=== PATIENT | female | born 1950 | race Caucasian/White ===

== ENCOUNTER → 2016-10-15 09:00 | Day surgery (SDC) | payer MEDICARE, BC ==
[~2016-10-15 09:00] MED LIST: Buffered Lidocaine 1% SYR 3ML* 3 ML/SYR SYRINGE INTRADERM ONE; Bupivacaine 0.25% EPI 200,000* 30 ML SDV ONE; Bupivacaine 0.25% SDV* 30 ML ONE; Lidocain 1% EPI 1:100,000 * 30 ML MDV ONE; Lidocaine 2% PF * 5 ML VIAL ONE; Metoprolol Succinate XL TAB* 50 MG ONE; Midazolam* 1 MG/ML 2 ML VIAL (2 MG) ONE; Propofol* 10 MG/ML 20 ML BTL IV PUSH ONE; ceFAZolin 2 GM PREMIX(*) 2 GM/50 ML BAG IVPB ONE; fentaNYL* 50 MCG/ML 2 ML VIAL (100 MCG VIAL) ONE
[2016-10-15 09:22] VITALS: BP 121/50
== END | disposition home or self-care (01) ==
LOC: OREAST 06:36
PROVIDERS: ATTEND Plastic Surgery
DX: C44.519 Basal cell carcinoma of skin of other part of trunk (principal); L72.0 Epidermal cyst; I10 Essential (primary) hypertension; E03.9 Hypothyroidism, unspecified; E11.9 Type 2 diabetes mellitus without complications; Z79.4 Long term (current) use of insulin; Z96.41 Presence of insulin pump (external) (internal)
CPT/HCPCS: 88304; 88305; A9270-GY; J0690; J2250; J2704; J3010

== ENCOUNTER 2018-03-14 18:26 | Emergency (ER) | payer MEDICARE, BC ==
[2018-03-14] MEDS ORDERED: Albuterol/Ipratropium NEB.SOL* Albuterol 2.5 MG/Ipratropium 0.5 MG 3 ML INH ONE (22:13)
[2018-03-14] MEDS ORDERED: Albuterol 2.5 MG/3 ML NEB.SOL* (0.083%) INH ONE (22:13)
--- NOTE | 2018-03-14 22:58 | ED ---
Complex/Multi-Sys Presentation - HPI Summary HPI Summary: Patient is a 67 y/o F w/ c/o congestion, a somewhat productive cough onsetting about a week ago. Fever, SOB, chest pain is denied. Hx of PNA is noted. Patient reports that she is concerned she is developing PNA again and wants to rule it out as she has a long vacation to [place] towards the end of the month. On triage , pain is denied, hot shower is noted to alleviate Sx, nothing is reported to aggravate. Patient began to take amoxicillin on her own yesterday in case it is PNA. Home medications and allergies are reviewed. - History Of Current Complaint Chief Complaint: EDGeneral Time Seen by Provider: 03/14/18 21:38 Hx Obtained From: Patient Onset/Duration: Lasting Weeks - a week ago, Still Present Timing: Constant Severity Currently: None Aggravating Factor(s): nothing Alleviating Factor(s): warm shower alleviates Associated Signs And Symptoms: Positive: Cough, Other - congestion. Negative: SOB, Chest Pain, Fever - Allergies/Home Medications Allergies/Adverse Reactions: Allergies Allergy/AdvReac Type Severity Reaction Status Date / Time Adhesive Tape Allergy Intermediate itchy and Verified 10/15/16 06:52 red bee venom protein (honey bee) Allergy Shortness Verified 03/14/18 21:41 of Breath rosuvastatin Allergy Muscle Ache Verified 03/14/18 19:25 PMH/Surg Hx/FS Hx/Imm Hx Endocrine/Hematology History: Reports: Hx Diabetes - type 1 - insulin pump, Hx Thyroid Disease Cardiovascular History: Reports: Hx Hypertension Respiratory History: Denies: Hx Asthma, Hx Chronic Obstructive Pulmonary Disease (COPD) Musculoskeletal History: Reports: 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 right shoulder rotator cuff repair 2004 - [facility]. cataract surgery with lens implant Hx Anesthesia Reactions: No - Immunization History Date of Tetanus Vaccine: utd Date of Influenza Vaccine: utd Infectious Disease History: No Infectious Disease History: Denies: Traveled Outside the [place] in Last 30 Days - Family History Known Family History: Negative: Blood Disorder - Social History Alcohol Use: Weekly Substance Use Type: Reports: None Smoking Status (MU): Light Every Day Tobacco Smoker Amount Used/How Often: smoked for 25-30 years 1/2 ppd Review of Systems Negative: Fever Negative: Chest Pain Positive: Cough, Other - congestion . Negative: Shortness Of Breath All Other Systems Reviewed And Are Negative: Yes Physical Exam - Summary Physical Exam Summary: VITAL SIGNS: Reviewed. GENERAL: Patient is a well-developed and nourished female who is lying comfortable in the stretcher. Patient is not in any acute respiratory distress. HEAD AND FACE: No signs of trauma. No ecchymosis, hematomas or skull depressions. No sinus tenderness. EYES: PERRLA, EOMI x 2, No injected conjunctiva, no nystagmus. EARS: Hearing grossly intact. Ear canals and tympanic membranes are within normal limits. MOUTH: Oropharynx within normal limits. NECK: Supple, trachea is midline, no adenopathy, no JVD, no carotid bruit, no c- spine tenderness, neck with full ROM. CHEST: Symmetric, no tenderness at palpation LUNGS: mild decreased breath sounds bilaterally. No wheezing or crackles. CVS: Regular rate and rhythm, S1 and S2 present, no murmurs or gallops appreciated. ABDOMEN: Soft, non-tender. No signs of distention. No rebound no guarding, and no masses palpated. Bowel sounds are normal. EXTREMITIES: FROM in all major joints, no edema, no cyanosis or clubbing. NEURO: Alert and oriented x 3. No acute neurological deficits. Speech is normal and follows commands. SKIN: Dry and warm Triage Information Reviewed: Yes Vital Signs On Initial Exam: Initial Vitals Temp Pulse Resp BP Pulse Ox 97.4 F 71 18 109/79 95 03/14/18 19:21 03/14/18 19:21 03/14/18 19:21 03/14/18 19:21 03/14/18 19:21 Vital Signs Reviewed: Yes Diagnostics - Vital Signs Vital Signs Temp Pulse Resp BP Pulse Ox 03/14/18 22:38 76 20 98 03/14/18 22:00 72 94 03/14/18 21:38 71 111/61 94 03/14/18 19:21 97.4 F 71 18 109/79 95 - Laboratory Lab Statement: Any lab studies that have been ordered have been reviewed, and results considered in the medical decision making process. - Radiology CXR Xray Interpretation: No Acute Changes Radiology Interpretation Completed By: ED Physician - CXR: no acute process, pending official report Re-Evaluation - Re-Evaluation First Eval Re-Evaluation Time: 22:55 Comment: Patient has BG of 46. She is a type 1 diabetic, which was not reported when provider first went into room. She will be given sandwich and soda. Second Eval Re-Evaluation Time: 23:30 Change: Improved Comment: Patient's BG is 205. She reports improvement in Sx after breathing treatment. CXR discussed with patient, she will be discharged to home. She is agreeable with this. Complex Multi-Symp Course/Dx Course Of Treatment: Patient is a 67 y/o F w/ c/o congestion, a somewhat productive cough onsetting about a week ago. Fever, SOB, chest pain is denied. Hx of PNA is noted. Patient reports that she is concerned she is developing PNA again and wants to rule it out as she has a long vacation to [place] towards the end of the month. On triage, pain is denied, hot shower is noted to alleviate Sx , nothing is reported to aggravate. Patient began to take amoxicillin on her own yesterday in case it is PNA. Physical exam showed mild decreased breath sounds bilaterally. CXR: no acute process.During ED course, patient received Levaquin 750 mg PO ONCE, Duoneb (albuterol 2.5 mg/ipratropium 0.5 mg) 1 neb INH ONCE, Ventolin 2.5 mg/3 ml Neb.Cherri 2.5 mg INH ONCE. 2255 Patients BG is 46, she is diabetic type 1. She will be given sandwich and soda. 2330 Patients BG is 205. She reports improvement in Sx after breathing treatment. CXR discussed with patient, she will be discharge to home and is agreeable with this. Dx of bronchitis. - Diagnoses Provider Diagnoses: Bronchitis Discharge - Sign-Out/Discharge Documenting (check all that apply): Patient Departure - discharge - Discharge Plan Condition: Stable Disposition: HOME Prescriptions: Albuterol HFA INHALER* [Ventolin HFA Inhaler*] 2 puff INH Q6H PRN #1 mdi PRN Reason: Sob/Wheezing Levofloxacin TAB* [Levaquin TAB*] 750 mg PO DAILY #7 tab Patient Education Materials: Acute Bronchitis (ED) Referrals: Alex PARKINSON,Francy Monsivais [Primary Care Provider] - 2 Days Additional Instructions: RETURN TO THE EMERGENCY DEPARTMENT FOR CHANGING OR WORSENING SYMPTOMS. FOLLOW UP WITH PRIMARY CARE PHYSICIAN IN 1-2 DAYS. - Attestation Statements Document Initiated by Scribe: Yes Documenting Scribe: Peter Samuels Provider For Whom Scribe is Documenting (Include Credential): Josué Llamas MD Scribe Attestation: IPeter , scribed for Josué Llamas MD on 03/15/18 at 0028.
[2018-03-14] MEDS ORDERED: Albuterol HFA INHALER* 8 gm MDI INH PRN (23:31)
[2018-03-14] MEDS ORDERED: Levofloxacin TAB* 750 MG PO ONE (23:31)
[2018-03-15 00:21] VITALS: BP 151/63
--- NOTE | 2018-03-15 07:52 | RAD ---
HISTORY: Cough COMPARISONS: August 03, 2011 VIEWS: 1: frontal AP view of the chest at 10:19 PM FINDINGS: LINES AND TUBES: None. CARDIOMEDIASTINAL SILHOUETTE: The cardiomediastinal silhouette is normal for portable technique. PLEURA: The costophrenic angles are sharp. No pleural abnormalities are noted. LUNG PARENCHYMA: There is hyperinflation. ABDOMEN: The upper abdomen is clear. There is no subphrenic gas. BONES AND SOFT TISSUES: No bone or soft tissue abnormalities are noted. IMPRESSION: HYPERINFLATION. NO ACTIVE CARDIOPULMONARY DISEASE. R0
== END 2018-03-15 00:35 | disposition home or self-care (01) ==
LOC: ED 18:26
DX: J40 Bronchitis, not specified as acute or chronic (principal); R05 Cough; F17.210 Nicotine dependence, cigarettes, uncomplicated; R09.81 Nasal congestion
CPT/HCPCS: 71045; 99283; A9270-GY

== ENCOUNTER 2019-07-15 11:54 | Emergency (ER) | payer MEDICARE, BC ==
--- OUTSIDE RECORDS SUMMARY | 2019-07-15 12:02 | XMS REPORT | Summary of Care ---
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 Reason for Visit Reason Comments Follow Up Diabetes Mellitus pt is using pump and checking 4 to 6x daily Encounter Details Date Type Department Care Team Description 06/26/2019 [facility] type 1, uncontrolled with complications (HCC) (Primary Dx); [address] Elisha English MD Hyperlipidemia, unspecified hyperlipidemia type; [address] Other osteoporosis, unspecified pathological fracture presence [address] [phone] [place] [address] [phone] Allergies Active Allergy Reactions Severity Noted Date Comments Bee Sting Swelling 08/13/2016 Rosuvastatin Calcium GI Reaction 05/05/2016 documented as of this encounter (statuses as of 06/27/2019) Medications Medication Sig Dispensed Refills Start Date End Date Status ramipril (ALTACE) 10 Take 10 mg by 0 Active MG Oral Cap mouth DAILY. Pravastatin Sodium 80 Take by mouth. 0 Active MG Oral Tab sertraline (ZOLOFT) Take 100 mg by 0 Active 100 MG Oral Tab mouth DAILY. aspirin (ECOTRIN) 81 Take 81 mg by 0 Active MG Oral Tab EC mouth DAILY. Ascorbic Acid (VITAMIN Take by mouth. 0 Active C) 1000 MG Oral Tab VITAMIN D, Take 2,000 IU by 0 Active ERGOCALCIFEROL, PO mouth. B Complex Vitamins (B Take by mouth. 0 Active COMPLEX PO) Insulin Infusion Pump 1 Each by Does not 30 Each 0 06/11/2016 Active Supplies (INSULIN PUMP apply route EVERY SYRINGE RESERVOIR) THREE DAYS. Does not apply Misc Insulin Infusion Pump 1 Each by Does not 30 Each 0 06/11/2016 Active Supplies (QUICK-SET apply route EVERY INFUSION 23" 6MM) Does THREE DAYS. not apply Misc Ibandronate Sodium 150 TAKE 1 TABLET BY 3 Tab 3 08/13/2017 Active MG Oral Tab MOUTH EVERY 30 DAYS NOVOLIN N 100 UNIT/ML INJECT 25 UNITS 20 vial 0 04/19/2018 Active Subcutaneous UNDER THE SKIN TWO Suspension TIMES DAILY BEFORE MEALS insulin aspart, RAPID Inject 60 Units 50 mL 3 09/27/2018 Active - Acting, (INSULIN beneath the skin ASPART) 100 UNIT/ML Continuous. Subcutaneous Solution insulin pump basal IC ISF Dx. E10.9 MDD-60UNITS Insulin Infusion Pump 1 Device by Does 1 Device 0 01/13/2019 Active (MINIMED 670G INSULIN not apply route PUMP) Does not apply Continuous. Device Continuous Blood Gluc 1 Each by Does not 12 Each 4 01/13/2019 Active Sensor (MINIMED apply route EVERY GUARDIAN SENSOR 3) 7 DAYS. Does not apply Misc CONTOUR NEXT TEST In 1 Each by In Vitro 550 Strip 4 01/13/2019 Active Vitro Strip route SIX TIMES DAILY. DXE10.65 Medtronic pump Levothyroxine Sodium Take 137 mcg by 60 Cap 2 01/25/2019 Active 137 MCG Oral Cap mouth DAILY. metoprolol (LOPRESSOR) Take 1 Tab by 60 Tab 3 01/25/2019 Active 50 MG Oral Tab mouth DAILY. levothyroxine TAKE 1 TABLET BY 60 Tab 2 05/12/2019 Active (SYNTHROID) 137 MCG MOUTH EVERY DAY Oral Tab documented as of this encounter (statuses as of 06/27/2019) Active Problems Problem Noted Date Uncontrolled type 1 diabetes mellitus without complication 08/06/2016 documented as of this encounter (statuses as of 06/27/2019) Social History Tobacco Use Types Packs/Day Years Used Date Former Smoker Smokeless Tobacco: Never Used Alcohol Use Drinks/Week oz/Week Comments Yes 1 Glasses of wine 1.0 Sex Assigned at Date Recorded Not on file Job Start Date Occupation Industry Not on file Not on file Not on file Travel History Travel Start Travel End No recent travel history available. documented as of this encounter Last Filed Vital Signs Vital Sign Reading Time Taken Comments Blood Pressure 120/60 06/26/2019 3:38 PM EST Pulse 86 06/26/2019 3:38 PM EST Temperature - - Respiratory Rate - - Oxygen Saturation 93% 06/26/2019 3:38 PM EST Inhaled Oxygen Concentration - - Weight 80.7 kg (178 lb) 06/26/2019 3:38 PM EST Height 165.1 cm (5' 5") 06/26/2019 3:38 PM EST Body Mass Index 29.62 06/26/2019 3:38 PM EST documented in this encounter Patient Instructions Patient InstructionsElisha Bright MD - 06/26/2019 3:00 PM EST DIABETES MELLITUS 1: Basal : 0:00 0.8 0.4 0.85 6: 1.3 18:00 1.25 I:C 1: 12 SF 1:55 over 100- 120 Thyroid Results for ARUNA SCALES ( ) as of 06/26/2019 15:52 Ref. Range 02/07/2019 08:16 Direct Ldl-Cholesterol Latest Ref Range: <100 MG/DL 80 T3 Total Shantel Latest Ref Range: 80 - 200 ng/dl 103 TSH Latest Ref Range: 0.47 - 4.68 uIu/ml 0.73 Free T4 Latest Ref Range: 0.8 - 2.2 NG/DL 1.3 eye : nonproliferative retinopathy appt with Sally as soon as posible documented in this encounter Progress Notes Elisha Bright MD - 06/26/2019 3:00 PM EST NAME: Aruna Scales : 1950 DATE: 06/26/2019 SUBJECTIVE: Aruna Scales is a 68-y.o. female seen for evaluation of DIABETES MELLITUS 1 The history was obtained from the pt who was judged to be reliable. Microvascular : + Background retinopathy follows with Dr Whitney on regular basis , + neuropathy , - nephropathy we are waiting for the reports from [facility] Macro: no CVA, no MD, No PVD Cardiovascular risk factors: dyslipidemia, diabetes mellitus, hypertension, post-menopausal. No admissions for DK or low BG Basal rate pump 670 G basal rate midnight 0.8 units/h 4 AM 0.85 units/h 6 AM 1.3 units/h 6 PM 1.25 units/h Insulin to carb ratio 1 unit per 12 grams of carbohydrates Sensitivity factor I unit per 55 points of blood sugar was target 100-1 20 Active insulin 4 hours. She checks her blood sugar before each meal and at bedtime 4- 6 x times a day. She was able to pare her glucose sensor with her pump but we do not have enoughdata yet. The pump was downloaded and she is still in manual mode 100% Average blood sugar on the pump 130 20 mg/dL next average blood sugar via fingerstick 146 42 Total daily dose of insulin 35 units bolus amount 7 units equals 20% basal rate 28 units equals 80% set change every 13 days next meals per day 0.9 she is not putting all the meals to the pump Carbs entered per day 64 31. HBa1c was 9.6 is 8.1 Primary hypothyroidism Lt4 to 137 mcg a day Osteoporosis on ibandronate 150 mg Past Medical History: Diagnosis Date Basal cell carcinoma Chronic lymphocytic thyroiditis Diabetes mellitus (HCC) dx age 25 HTN (hypertension) Hyperlipidemia Hypothyroid Osteoporosis Current Outpatient Medications Medication Sig Ascorbic Acid (VITAMIN C) 1000 MG Oral Tab Take by mouth. aspirin (ECOTRIN) 81 MG Oral Tab EC Take 81 mg by mouth DAILY. B Complex Vitamins (B COMPLEX PO) Take by mouth. Continuous Blood Gluc Sensor ([employer] GUARDIAN SENSOR 3) Does not apply Misc 1 Each by Does not apply route EVERY 7 DAYS. CONTOUR NEXT TEST In Vitro Strip 1 Each by In Vitro route SIX TIMES DAILY. DXE10.65 Medtronicpump Ibandronate Sodium 150 MG Oral Tab TAKE 1 TABLET BY MOUTH EVERY 30 DAYS insulin aspart, RAPID - Acting, (INSULIN ASPART) 100 UNIT/ML Subcutaneous Solution Inject 60 Units beneath the skin Continuous. insulin pump basal IC ISF Dx. E10.9 MDD-60UNITS Insulin Infusion Pump ([employer] 670G INSULIN PUMP) Does not apply Device 1 Device by Does not apply route Continuous. Insulin Infusion Pump Supplies (INSULIN PUMP SYRINGE RESERVOIR) Does not apply Misc 1 Each byDoes not apply route EVERY THREE DAYS. Insulin Infusion Pump Supplies (QUICK-SET INFUSION 23" 6MM) Does not apply Misc 1 Each by Does not apply route EVERY THREE DAYS. levothyroxine (SYNTHROID) 137 MCG Oral Tab TAKE 1 TABLET BY MOUTH EVERY DAY Levothyroxine Sodium 137 MCG Oral Cap Take 137 mcg by mouth DAILY. metoprolol (LOPRESSOR) 50 MG Oral Tab Take 1 Tab by mouth DAILY. NOVOLIN N 100 UNIT/ML Subcutaneous Suspension INJECT 25 UNITS UNDER THE SKIN TWO TIMES DAILY BEFORE MEALS Pravastatin Sodium 80 MG Oral Tab Take by mouth. ramipril (ALTACE) 10 MG Oral Cap Take 10 mg by mouth DAILY. sertraline (ZOLOFT) 100 MG Oral Tab Take 100 mg by mouth DAILY. VITAMIN D, ERGOCALCIFEROL, PO Take 2,000 IU by mouth. No current facility-administered medications for this visit. Allergies Allergen Reactions Bee Sting Swelling Crestor [Rosuvastatin Calcium] GI Reaction Family History Problem Relation Age of Onset Cancer Mother thyroid Thyroid Disease Mother Cancer Father melanoma in the eye Heart Father Cancer Sister breast Thyroid Disease Sister Stroke Brother Thyroid Disease Brother Diabetes Brother DM 2 Thyroid Disease Maternal Grandfather Diabetes Paternal Grandmother Heart Paternal Grandmother Social History Socioeconomic History Marital status: Single Spouse name: Not on file Number of children: Not on file Years of education: Not on file Highest education level: Not on file Occupational History Not on file Social Needs Financial resource strain: Not on file Food insecurity Worry: Not on file Inability: Not on file Transportation needs Medical: Not on file Non-medical: Not on file Tobacco Use Smoking status: Former Smoker Smokeless tobacco: Never Used Substance and Sexual Activity Alcohol use: Yes Alcohol/week: 1.0 standard drinks Types: 1 Glasses of wine per week Drug use: Not on file Sexual activity: Not on file Lifestyle Physical activity Days per week: Not on file Minutes per session: Not on file Stress: Not on file Relationships Social connections Talks on phone: Not on file Gets together: Not on file Attends buddhism service: Not on file Active member of club or organization: Not on file Attends meetings of clubs or organizations: Not on file Relationship status: Not on file Intimate partner violence Fear of current or ex partner: Not on file Emotionally abused: Not on file Physically abused: Not on file Forced sexual activity: Not on file Other Topics Concern Not on file Social History Narrative Not on file Complete review of systems is negative except for what is in HPI. OBJECTIVE: BP 120/60 | Pulse 86 | Ht 5' 5" (1.651 m) | Wt 178 lb (80.7 kg) | SpO2 93% | BMI 29.62 kg/m General: no distress. Eyes: fundi normal, extraocular motions intact, no globe or lid lag. Neck: no thyroid enlargement or nodules. Lungs: clear. Heart: regular rate and rhythm, no murmur. S4 present Abdomen: soft, nontender, no masses or organomegaly. Extremities: no edema or foot lesions, good pedal pulses. no ulcers Neurologic: no tremor, Left foot Diabetic foot exam: Visual exam: normal Sensory: Filament test: present diminished Pulse: a pulse was present Right foot diabetic exam Visual exam: normal Sensory: Filament test: present diminished Pulse: a pulse was present LABORATORY: Lab Results Component Value Date CHOL 240 (H) 11/17/2018 TRIG 94 11/17/2018 HDL 83 11/17/2018 LDL 138 (H) 11/17/2018 LDLHDLRATIO 1.7 11/17/2018 CHOLHDLRATIO 2.9 11/17/2018 Lab Results Component Value Date TSH 0.73 02/07/2019 ASSESSMENT: 1. DM (diabetes mellitus), type 1, uncontrolled with complications (HCC) 2. Hyperlipidemia, unspecified hyperlipidemia type 3. Other osteoporosis, unspecified pathological fracture presence 4. Hyperlipidemia on pravastatin 80 mg a day 5.HTn and prevention CKD Ramipril 10 mg a day PLAN: Orders Placed This Encounter COMPREHENSIVE METABOLIC PANEL LIPID PROFILE MICROALBUMIN, RANDOM URINE W/ CREATININE THYROID STIMULATING HORMONE ACCU-CHECK GLUCOSE (AMB POCT) GLYCOHEMOGLOBIN (AMB POCT) Patient Instructions DIABETES MELLITUS 1: Basal : 0:00 0.8 0.4 0.85 6: 1.3 18:00 1.25 I:C 1: 12 SF 1:55 over 100- 120 Thyroid Results for ARUNA SCALES ( ) as of 06/26/2019 15:52 Ref. Range 02/07/2019 08:16 Direct Ldl-Cholesterol Latest Ref Range: <100 MG/DL 80 T3 Total Shantel Latest Ref Range: 80 - 200 ng/dl 103 TSH Latest Ref Range: 0.47 - 4.68 uIu/ml 0.73 Free T4 Latest Ref Range: 0.8 - 2.2 NG/DL 1.3 eye : nonproliferative retinopathy appt with Sally as soon as posible . Elisha Bright MD 06/27/2019 23:19 Section of Endocrinology This Document has been electronically signed documented in this encounter Plan of Treatment Date Type Specialty Care Team Description 07/07/2019 Office Visit Endocrinology Elisha Blank RN [address] [place] [address] 10/03/2019 Office Visit Endocrinology Elisha Bright MD [address] [place] [address] Name Type Priority Associated Diagnoses Order Schedule COMPREHENSIVE METABOLIC Lab Routine DM (diabetes mellitus), Expected: PANEL type 1, uncontrolled 06/26/2019 with complications (Approximate), (HCC) Expires: 12/23/2019 LIPID PROFILE Lab Routine DM (diabetes mellitus), Expected: type 1, uncontrolled 06/26/2019 with complications (Approximate), (HCC) Expires: 12/23/2019 MICROALBUMIN, RANDOM Lab Routine DM (diabetes mellitus), Expected: URINE W/ CREATININE type 1, uncontrolled 06/26/2019 with complications (Approximate), (HCC) Expires: 12/23/2019 THYROID STIMULATING Lab Routine DM (diabetes mellitus), Expected: HORMONE type 1, uncontrolled 06/26/2019 with complications (Approximate), (HCC) Expires: 12/23/2019 DIABETES FOOT EXAM Procedures Routine DM (diabetes mellitus), Ordered: type 1, uncontrolled 06/27/2019 with complications (HCC) Health Maintenance Due Date Last Done Comments MEDICARE ANNUAL WELLNESS 1950 VISIT DTaP/Tdap/Td Vaccines (1 - 1960 Tdap) DEPRESSION SCREENING 1961 HIV SCREENING 1964 HEPATITIS C SCREENING 1989 MAMMOGRAM (SCREENING) 1989 Colonoscopy 12/13/1999 ZOSTER IMMUNIZATION SERIES 12/13/1999 (1 of 2) OSTEOPOROSIS SCREENING 2014 PNEUMOCOCCAL 65+YRS (1 of 2 2014 - PCV13) INFLUENZA VACCINE (#1) 2019 HEMOGLOBIN A1C 09/25/2019 06/26/2019, 01/25/2019, 10/13/2018, Additional history exists FALL RISK ASSESSMENT 10/14/2019 10/13/2018, 10/13/2018 FOOT EXAM 01/26/2020 01/25/2019, 01/25/2019, 01/25/2019, Additional history exists LIPID DISORDER SCREENING 02/08/2020 02/07/2019, 11/17/2018, 09/09/2017 Diabetic Eye Exam 05/26/2020 05/26/2019, 05/26/2019, 08/08/2018, Additional history exists HEPATITIS A IMMUNIZATION Aged Out No longer eligible SERIES based on patient's age to complete this topic HPV IMMUNIZATION SERIES Aged Out No longer eligible based on patient's age to complete this topic MENINGOCOCCAL VACCINE IMM Aged Out No longer eligible based on patient's age to complete this topic documented as of this encounter Procedures Procedure Name Priority Date/Time Associated Diagnosis Comments ACCU-CHECK GLUCOSE (AMB Routine 06/26/2019 3:41 DM (diabetes Results for this POCT) PM EST mellitus), type 1, procedure are in uncontrolled with the results complications (HCC) section. GLYCOHEMOGLOBIN (AMB Routine 06/26/2019 3:41 DM (diabetes Results for this POCT) PM EST mellitus), type 1, procedure are in uncontrolled with the results complications (HCC) section. documented in this encounter Results GLYCOHEMOGLOBIN (AMB POCT) (06/26/2019 3:41 PM EST) GLYCOHEMOGLOBIN (POCT) 8.1 (A) 3.9 - 5.6 % [facility] POCT Specimen Performing Organization Address [facility] Phone Number [facility] [address] [place] [address] ACCU-CHECK GLUCOSE (AMB POCT) (06/26/2019 3:41 PM EST) Glucose, Accu-Check 187 (A) 70 - 99 mg/dl [facility] POCT Glucose Strip Lot # [id number] [facility] POCT QC Documented Yes Yes [facility] POCT Specimen Performing Organization Address [facility] Phone Number [facility] [address] [place] [id number] documented in this encounter Visit Diagnoses Diagnosis DM (diabetes mellitus), type 1, uncontrolled with complications (HCC) Type I (juvenile type) diabetes mellitus with unspecified complication, uncontrolled Hyperlipidemia, unspecified hyperlipidemia type Other osteoporosis, unspecified pathological fracture presence documented in this encounter Guarantor Name Account Type Relation to Date of Phone Billing Patient Address Aruna Scales Personal/Family 1950 [address] (Home) [phone] [place], [place] (Work) [address] documented as of this encounter
[2019-07-15] MEDS ORDERED: Ibuprofen TAB* 600 MG PO ONE (12:57)
--- NOTE | 2019-07-15 12:57 | ED ---
Lower Extremity - HPI Summary HPI Summary: 68-year-old female presents to the emergency department today after a mechanical fall down her stairs this morning. Patient states during the fall she twisted her right ankle and experienced 10 out of 10 pain. In the emergency department she complains of 3 out of 10 pain. Patient states she then rested and elevated her ankle but has not taken any medication prior to arrival. Patient states she is able to ambulate and bear weight however she does so with much pain and difficulty. Patient has full range of motion of the ankle and there is noted ecchymosis and edema to the lateral malleolus of the right ankle. Patient was neurovascularly intact. Patient has no other complaints at this time including fever, chest pain, shortness of breath, abdominal pain, pain with urination, rash, headache, loss of consciousness. - History of Current Complaint Chief Complaint: EDExtremityLower Stated Complaint: R ANKLE INJ FROM FALL PER PT Time Seen by Provider: 07/15/19 12:16 Hx Obtained From: Patient Mechanism Of Injury: Fall From A Standing Position, Twisted Onset of Pain: Immediate Onset/Duration: Hours Severity Initially: Severe Severity Currently: Moderate Pain Intensity: 6 Pain Scale Used: 0-10 Numeric Timing: Constant Location: Is Discrete @ - R ankle Character Of Pain: Aching, Throbbing Associated Signs And Symptoms: Positive: Swelling, Bruising. Negative: Fever Aggravating Factor(s): Ambulation, Movement, Weight Bearing, Stairs Alleviating Factor(s): Rest, Elevation Able to Bear Weight: Yes - Allergies/Home Medications Allergies/Adverse Reactions: Allergies Allergy/AdvReac Type Severity Reaction Status Date / Time Adhesive Tape Allergy Intermediate itchy and Verified 07/15/19 11:59 red bee venom protein (honey bee) Allergy Shortness Verified 07/15/19 11:59 of Breath rosuvastatin Allergy Muscle Ache Verified 07/15/19 11:59 PMH/Surg Hx/FS Hx/Imm Hx Endocrine/Hematology History: Reports: Hx Diabetes - type 1 - insulin pump, Hx Thyroid Disease Cardiovascular History: Reports: Hx Hypertension Respiratory History: Denies: Hx Asthma, Hx Chronic Obstructive Pulmonary Disease (COPD) Musculoskeletal History: Reports: 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 right shoulder rotator cuff repair 2004 - [facility]. cataract surgery with lens implant Hx Anesthesia Reactions: No - Immunization History Date of Tetanus Vaccine: utd Date of Influenza Vaccine: utd Infectious Disease History: No Infectious Disease History: Denies: Traveled Outside the in Last 30 Days - Family History Known Family History: Negative: Blood Disorder - Social History Alcohol Use: Weekly Substance Use Type: Reports: None Smoking Status (MU): Former Smoker Amount Used/How Often: smoked for 25-30 years 1/2 ppd Review of Systems Constitutional: Negative Eyes: Negative ENT: Negative Cardiovascular: Negative Respiratory: Negative Gastrointestinal: Negative Genitourinary: Negative Positive: Arthralgia, Myalgia, Decreased ROM, Edema Positive: Bruising Neurological/Mental Status: Negative Psychological: Normal All Other Systems Reviewed And Are Negative: Yes Physical Exam - Summary Physical Exam Summary: Patient is in no acute distress. Patient has no neurological deficits. Patient is neurovascularly intact. There is noted ecchymosis and edema to the right lateral malleolus. Patient has full passive range of motion whether this is done with pain. Patient has no pain with palpation of the talus bone, medial malleolus, fifth metatarsal however there is pain with palpation of the lateral malleolus. Dorsalis pedis pulses 2+ bilaterally with brisk capillary refill. Triage Information Reviewed: Yes Vital Signs On Initial Exam: Initial Vitals Temp Pulse Resp BP Pulse Ox 97.7 F 84 19 132/71 98 07/15/19 11:56 07/15/19 11:56 07/15/19 11:56 07/15/19 11:56 07/15/19 11:56 Vital Signs Reviewed: Yes Appearance: Positive: Well-Appearing, No Pain Distress, Well-Nourished Skin: Positive: Warm, Skin Color Reflects Adequate Perfusion Eyes: Positive: EOMI, HAROON ENT: Positive: Hearing grossly normal Respiratory/Lung Sounds: Positive: Clear to Auscultation, Breath Sounds Present Cardiovascular: Positive: RRR, S1, S2 Abdomen Description: Positive: Nontender, Soft. Negative: Distended, Guarding Bowel Sounds: Positive: Present Musculoskeletal: Positive: Edema Right Neurological: Positive: Sensory/Motor Intact, Alert, Oriented to Person Place, Time, Facial Symmetry, Speech Normal Psychiatric: Positive: Normal, Affect/Mood Appropriate AVPU Assessment: Alert Procedures - Sedation Patient Received Moderate/Deep Sedation with Procedure: No Diagnostics - Vital Signs Vital Signs Temp Pulse Resp BP Pulse Ox 07/15/19 11:56 97.7 F 84 19 132/71 98 - Laboratory Lab Statement: Any lab studies that have been ordered have been reviewed, and results considered in the medical decision making process. Lower Extremity Course/Dx - Course Course Of Treatment: Patient evaluated for right ankle pain. Vitals noted and stable. Patient was given 600 mg of ibuprofen for pain. X-rays done of the right ankle which shows no evidence of fracture. Likely patient sustained right lateral ankle sprain. Patient was given Jones wrap to the right ankle as well as gel ankle stirrup. Patient was given a walker for ambulation. Patient discharged to outpatient follow-up with orthopedics in 5-7 days. - Diagnoses Differential Diagnosis/HQI/PQRI: Positive: Arthritis, Contusion, Fracture ( Closed), Sprain, Strain Provider Diagnoses: Right ankle pain Discharge ED - Sign-Out/Discharge Documenting (check all that apply): Patient Departure - Discharge Plan Condition: Stable Disposition: HOME Patient Education Materials: Ankle Sprain (ED) Referrals: Alex PARKINSON,Francy Monsivais [Primary Care Provider] - Antonio Jackson MD [Medical Doctor] - 4 Days Additional Instructions: You were seen in the emergency department today for right ankle sprain. Please follow up with Orthopedics in 5 days for further evaluation and management of your injury. Until you are seen by Orthopedics please return to activity is tolerated. For further alleviation of your symptoms please practice R.I.C.E therapy. Rest, Ice, compress, elevate the affected area. * Ibuprofen 600mg three times daily with meals for pain. * If numbness, tingling, decreased sensation, increased pain, temperature changes or pallor noted in toes, come back to ER immediately. * Protect the area. For your comfort level, do not bear weight, pull or push until you can injury is somewhat healed. This may involve the need for immobilization or crutches for a period of time. * Rest the involved area, but not too long. You may need to be off your injury for some time to allow for healing, however excessive immobilization of joints can lead to stiffness and delay healing time. Early mobilization is encouraged if it is pain-free. * Ice: Not directly on the skin. Cover with a towel. Apply ice no more than 30 minutes at a time * Compression: You may use and keep an jones wrap bandage over the injury to decrease swelling. Again, this should be limited and be taken off periodically to encourage early range of motion and mobilization. * Elevate: Try to elevate the injured area above the heart whenever possible, Especially during sleep. - Billing Disposition and Condition Condition: STABLE Disposition: Home
[2019-07-15 13:45] VITALS: BP 127/61
== END 2019-07-15 13:40 | disposition home or self-care (01) ==
LOC: ED 11:54
DX: M25.571 Pain in right ankle and joints of right foot (principal); W10.9XXA Fall (on) (from) unspecified stairs and steps, initial encounter; Y92.9 Unspecified place or not applicable; E10.9 Type 1 diabetes mellitus without complications; Z96.41 Presence of insulin pump (external) (internal); Z79.4 Long term (current) use of insulin; E07.9 Disorder of thyroid, unspecified; I10 Essential (primary) hypertension; F32.9 Major depressive disorder, single episode, unspecified; Z87.891 Personal history of nicotine dependence; Z88.8 Allergy status to other drugs, medicaments and biological substances
CPT/HCPCS: 99282; A9270-GY